=== PATIENT | female | born 1995 | race Caucasian/White ===

== ENCOUNTER 2020-12-03 09:16 | Emergency (ER) | payer OTHER ==
[~2020-12-03] VITALS: Ht 172.7 cm; Wt 100.0 kg
[2020-12-03 09:19] VITALS: BP 150/81; Ht 172.7 cm; Wt 100.0 kg
[2020-12-03] MEDS ORDERED: HYDROCHLOROTH12.5 M1 PO (09:21)
[2020-12-03 09:39] LABS: BASOPHILS 0.2 % (0-2); EOSINOPHILS 3.1 % (0-7); HEMATOCRIT 44.9 % (36.0-48.0); HEMOGLOBIN 15.2 g/dL (12-16); IMMATURE GRANULOCYTES 0.1 % (0-5); LYMPHOCYTE ABS# 3.18 10x3/uL (1.18-3.74); LYMPHOCYTES 36.6 % (15-50); MCH 29.7 pg (26.0-34.0); MCHC 33.9 g/dL (31.0-37.0); MCV 87.9 fL (80.0-100.0); MEAN PLATELET VOLUME 10.3 fL (7.4-10.4); MONOCYTES 5.3 % (2-11); NEUTROPHIL ABS# 4.74 10x3/uL (1.56-6.13); NEUTROPHILS 54.7 % (40-80); RBC 5.11 10x6/uL (4.00-5.40); RDW 12.7 % (11.5-14.5); WBC 8.7 10x3/uL (4.8-10.8)
[2020-12-03 09:40] LABS: BILIRUBIN NEGATIVE (NEGATIVE); KETONE NEGATIVE (NEGATIVE); NITRITE NEGATIVE (NEGATIVE); PLATELET COUNT 268 10x3/uL (130-400); UROBILINOGEN NORMAL mg/dL (< 2)
[2020-12-03 09:42] LABS: BACTERIA MODERATE HPF (NONE SEEN); SQUAMOUS EPITHELIAL 0-5 HPF (0-4)
[2020-12-03 09:54] LABS: CALC OSMOLALITY 269 mosm/kg (275-300); CALCIUM 8.9 mg/dL (8.5-10.1); CARBON DIOXIDE 24.8 mmol/L (21.0-32.0); CHLORIDE - SERUM 105 mmol/L (98-107); CREATININE - SERUM 0.8 mg/dL (0.6-1.3); GLUCOSE 98 mg/dL (74-106); POTASSIUM - SERUM 3.8 mmol/L (3.5-5.1); SODIUM 135 mmol/L (136-145); UREA NITROGEN 12 mg/dL (7-18); eGFR NON AFRICAN AMERICAN > 90 mL/min (90-120)
[2020-12-03 10:01] LABS: ALBUMIN 3.6 g/dL (3.4-5.0); ALKALINE PHOSPHATASE 96 U/L (30-120); ALT (SGPT) 23 U/L (10-68); BILIRUBIN - TOTAL 0.27 mg/dL (0.2-1.3); PROTEIN - SERUM 6.9 g/dL (6.4-8.2)
[2020-12-03 10:27] LABS: HCG URINE NEGATIVE (NEGATIVE)
[2020-12-03] MEDS ORDERED: FLORASTOR250 MG PO (10:35)
[2020-12-03] MEDS ORDERED: MACROBID100 MG PO (10:35)
[2020-12-03] MEDS ORDERED: ZOFRAN ODT4 MG/UDTAB PO (10:35)
[2020-12-03] MEDS ORDERED: HYDROCODON-ACE1 EA10 PO (10:35)
[2020-12-03] MEDS ORDERED: CEPHALEXIN500 M1 PO (10:35)
[2020-12-03] MEDS ORDERED: FLOMAX0.4 MG PO (10:41)
== END 2020-12-03 10:54 | disposition home or self-care (01) ==
LOC: D.ER 09:16
PROVIDERS: Family Medicine
DX: R10.9 Unspecified abdominal pain (principal); N39.0 Urinary tract infection, site not specified; N20.1 Calculus of ureter

== ENCOUNTER 2020-12-05 09:21 | Emergency (ER) | payer OTHER ==
[~2020-12-05] VITALS: Ht 172.7 cm; Wt 104.5 kg
[~2020-12-05 09:21] MED LIST: CEPHALEXIN500 M1 PO; FLOMAX0.4 MG PO; FLORASTOR250 MG PO; HYDROCHLOROTH12.5 M1 PO; HYDROCODON-ACE1 EA10 PO; MACROBID100 MG PO; ZOFRAN ODT4 MG/UDTAB PO
[2020-12-05 09:26] VITALS: Ht 172.7 cm; Wt 104.5 kg
[2020-12-05 09:52] LABS: BILIRUBIN NEGATIVE (NEGATIVE); KETONE NEGATIVE (NEGATIVE); NITRITE NEGATIVE (NEGATIVE); UROBILINOGEN NORMAL mg/dL (< 2)
[2020-12-05 09:53] LABS: HCG URINE NEGATIVE (NEGATIVE)
[2020-12-05 09:56] LABS: BACTERIA FEW HPF (NONE SEEN)
[2020-12-05 10:30] LABS: BASOPHILS 0.2 % (0-2); EOSINOPHILS 2.2 % (0-7); HEMATOCRIT 40.6 % (36.0-48.0); HEMOGLOBIN 13.6 g/dL (12-16); IMMATURE GRANULOCYTES 0.1 % (0-5); LYMPHOCYTE ABS# 2.41 10x3/uL (1.18-3.74); LYMPHOCYTES 25.5 % (15-50); MCH 29.6 pg (26.0-34.0); MCHC 33.5 g/dL (31.0-37.0); MCV 88.3 fL (80.0-100.0); MEAN PLATELET VOLUME 10.6 fL (7.4-10.4); MONOCYTES 6.1 % (2-11); NEUTROPHIL ABS# 6.22 10x3/uL (1.56-6.13); NEUTROPHILS 65.9 % (40-80); PLATELET COUNT 249 10x3/uL (130-400); RDW 12.8 % (11.5-14.5); WBC 9.5 10x3/uL (4.8-10.8)
[2020-12-05 10:31] LABS: CALC OSMOLALITY 279 mosm/kg (275-300); CALCIUM 8.7 mg/dL (8.5-10.1); CARBON DIOXIDE 28.2 mmol/L (21.0-32.0); CHLORIDE - SERUM 104 mmol/L (98-107); CREATININE - SERUM 0.8 mg/dL (0.6-1.3); GLUCOSE 105 mg/dL (74-106); POTASSIUM - SERUM 3.7 mmol/L (3.5-5.1); SODIUM 140 mmol/L (136-145); UREA NITROGEN 15 mg/dL (7-18); eGFR NON AFRICAN AMERICAN > 90 mL/min (90-120)
[2020-12-05 10:38] LABS: ALBUMIN 3.5 g/dL (3.4-5.0); ALKALINE PHOSPHATASE 88 U/L (30-120); ALT (SGPT) 27 U/L (10-68); BILIRUBIN - TOTAL 0.13 mg/dL (0.2-1.3); PROTEIN - SERUM 6.7 g/dL (6.4-8.2)
[2020-12-05] MEDS ORDERED: HYDROCODON-ACE1 EA10 PO (11:12)
[2020-12-05 12:32] VITALS: BP 130/72
== END 2020-12-05 12:41 | disposition home or self-care (01) ==
LOC: D.ER 09:21
PROVIDERS: Emergency Medicine
DX: N20.1 Calculus of ureter (principal)